=== PATIENT | female | born 1985 | race Two or more races ===

== ENCOUNTER → 2017-11-01 | Outpatient (CLI) | payer SELFPAY ==
[~2017-11-01] MED LIST: OMNIPAQUE 300 MG/ML, 10ML VIAL ONE
== END | disposition home or self-care (01) ==
LOC: RAD 14:53
PROVIDERS: ATTEND Obstetrics & Gynecology
DX: N97.9 Female infertility, unspecified (principal)
CPT/HCPCS: 74740; Q9967